=== PATIENT | male | born 1970 | race Caucasian/White ===

== ENCOUNTER 2016-05-21 09:41 | Emergency (ER) | payer OTHER ==
[2016-05-21] MEDS ORDERED: KETOROLAC 30 MG/ML VIAL ONE (11:25)
[2016-05-21] MEDS ORDERED: ONDANSETRON 4 MG VIAL ONE (11:25)
[2016-05-21] MEDS ORDERED: SODIUM CHLORIDE 0.9% 1,000 ML ONE (11:25)
[2016-05-21] MEDS ORDERED: MORPHINE 4 MG/ML SYR ONE (11:56)
== END 2016-05-21 12:31 | disposition home or self-care (01) ==
LOC: ER 09:41
DX: N20.0 Calculus of kidney (principal); N30.01 Acute cystitis with hematuria; N20.1 Calculus of ureter; Z79.899 Other long term (current) drug therapy
CPT/HCPCS: 74000; 81001; 87088; 96361; 96374; 96375